=== PATIENT | female | born 1960 | race Asian ===

== ENCOUNTER 2020-12-09 09:35 | Outpatient (REF) | payer OTHER, SELFPAY ==
--- NOTE | ~2020-12-09 | US_ITS ---
EXAMINATION: US THYROID CLINICAL INFORMATION: Multinodular goiter COMPARISON: None TECHNIQUE: Linear transducer larson-scale and color Doppler examination with attention to the region of the thyroid. FINDINGS: SIZE: Measurements of the thyroid lobes and nodules are given in sagittal, anteroposterior and transverse dimensions respectively. Right Thyroid Lobe: 5.7 x 2.3 x 1.2 cm, volume 8.1 mL. Parenchyma: The gland echotexture is heterogeneous. Thyroid vascularity is mildly increased. Left Thyroid Lobe: 5.8 x 1.9 x 2.1 cm, volume 12 mL. Parenchyma: The gland echotexture is heterogeneous. Thyroid vascularity is mildly increased. Isthmus: 0.3 cm in maximum AP dimension. Estimated total number of nodules greater than or equal to 1 cm: 6 to 10. Magazine [employer] nodules are described as follows: 1. Location: Right mid. Size: 1.1 x 0.6 x 0.9 cm, volume 0.31 mL. Nodule characteristics: Composition: Spongiform (0). Echogenicity: Cannot be determined (1). Shape: Not taller than wide (0). Margins: Smooth (0). Echogenic Foci: None (0). ACR TI-RADS total points: 1 ACR TI-RADS category: 1 2. Location: Right lower. Size: 2.1 x 1.7 x 1.7 cm, volume 3.2 mL. Nodule characteristics: Composition: Mixed cystic and solid (1). Echogenicity: Isoechoic (1). Shape: Not taller than wide (0). Margins: Smooth (0). Echogenic Foci: None (0). ACR TI-RADS total points: 2 ACR TI-RADS category: 2 3. Location: Right isthmus. Size: 0.4 x 0.4 x 0.4 cm, volume 0.03 mL. Nodule characteristics: Composition: Cannot be determined (2). Echogenicity: Cannot be determined (1). Shape: Not taller than wide (0). Margins: Smooth (0). Echogenic Foci: Peripheral calcifications (2). ACR TI-RADS total points: 5 ACR TI-RADS category: 4 4. Location: Left mid/lower. Size: 1.7 x 1.4 x 1.3 cm, volume 1.6 mL. Nodule characteristics: Composition: Mixed cystic and solid (1). Echogenicity: Isoechoic (1). Shape: Not taller than wide (0). Margins: Smooth (0). Echogenic Foci: None (0). ACR TI-RADS total points: 2 ACR TI-RADS category: 2 5. Location: Left mid. Size: 1.3 x 0.8 x 0.8 cm, volume 0.4 mL. Nodule characteristics: Composition: Spongiform (0). Echogenicity: Cannot be determined (1). Shape: Not taller than wide (0). Margins: Smooth (0). Echogenic Foci: None (0). ACR TI-RADS total points: 1 ACR TI-RADS category: 1 NODES: No lymphadenopathy is seen in the tissue surrounding the thyroid gland. US/US thyroid IMPRESSION: 1. Multinodular gland. No visible adjacent adenopathy. 2. Subcentimeter right isthmus nodule with rim calcification, TI-RADS 4. 3. Right lobe TR-RADS 2 lesion lower pole, 2.1 cm. 4. Left lobe BI-RADS 2 lesion mid lower pole, 1.7 cm. 5. No required follow-up using TI-RADS reference (below). Reference: ACR TI-RADS RECOMMENDATION: TR1 (0 point) and TR 2 (2 points) -No FNA or follow up TR3 (3 points) -FNA if 2.5 cm or greater maximal dimension. -US followup in 1, 3, and 5 years if 1.5 - 2.4 cm maximal dimension. -No followup if under 1.5 cm maximal dimension. TR4 (4-6 points) -FNA if 1.5 cm or greater maximal dimension. -US followup in 1, 2, 3, and 5 years if 1.0 - 1.4 cm maximal dimension. -No followup if under 1.0 cm maximal dimension. TR5 (7 points or greater) -FNA if 1.0 cm or greater maximal dimension. -US followup annually for 5 years if 0.5 - 0.9 cm maximal dimension. -No followup if under 0.5 cm maximal dimension.
== END 2020-12-09 09:36 | disposition home or self-care (01) ==
LOC: HO.US 09:35
PROVIDERS: PCP Nurse Practitioner Family; Visit Provider Internal Medicine Endocrinology, Diabetes & Metabolism
DX: E04.2 Nontoxic multinodular goiter (principal)
CPT/HCPCS: 76536